=== PATIENT | male | born 1940 | race Caucasian/White ===

== ENCOUNTER 2018-06-14 21:38 | Emergency (ER) | payer OTHER, MEDICARE ==
[~2018-06-14] VITALS: Ht 185.4 cm; Wt 85.3 kg
[2018-06-14 21:46] VITALS: BP 158/77
--- NOTE | 2018-06-14 23:52 | ED GENERAL ADULT ---
History of Present Illness General Chief Complaint: Sore Throat, Dental Pain Stated Complaint: SORE THROAT Source: patient Exam Limitations: no limitations Vital Signs & Intake/Output Vital Signs & Intake/Output Vital Signs Date Time Temp Pulse Resp B/P B/P Pulse O2 O2 Flow FiO2 Mean Ox Delivery Rate 06/14 2146 99.6 64 20 158/77 97 Room Air ED Intake and Output 06/15 0000 06/14 1200 Intake Total Output Total Balance Patient 188 lb Weight Weight Reported by Patient Measurement Method Allergies Coded Allergies: NO KNOWN ALLERGIES (07/07/11) Reconcile Medications Codeine Phosphate/Guaifenesi (Guaifen-Codeine 100-10 MG/5 Ml) 10 MG-100 MG/5 ML LIQUID 1 TSP PO QPMP PRN COUGH Doxycycline Hyclate (Vibramycin) 100 MG CAPSULE 1 CAP PO BID BRONCHITIS Triage Note: REPORTS SORE THROAT SINCE LAST SATURDAY. DENIED FEVER. TEMP AT TRIAGE 99.6 Triage Nurses Notes Reviewed? yes Onset: Abrupt Duration: day(s): Timing: recent history HPI: 06/15/18 11:51 PM 78-year-old man presents with cough and burning sore throat. No fever. No shortness of breath. No chest pain. He is coughing up yellow sputum. He a past medical history of [id number] diabetes. He has trial mucinex DM without any significant relief. He denies any associated fever or chills. Past History Travel History Traveled to [place] past 21 day No Medical History Any Pertinent Medical History? see below for history Neurological: NONE EENT: NONE Cardiovascular: hypertension Respiratory: NONE Gastrointestinal: NONE Hepatic: NONE Renal: NONE Musculoskeletal: NONE Psychiatric: NONE Endocrine: DM Blood Disorders: NONE Cancer(s): NONE TILE ROOFER/Reproductive: NONE Surgical History Surgical History: none Psychosocial History What is your primary language Divehi Tobacco Use: Never used Family History Hx Contributory? No Review of Systems Review of Systems Constitutional: Denies: chills, fever, weakness. EENTM: Reports: throat pain. Respiratory: Reports: cough. Cardiovascular: Reports: no symptoms. GI: Reports: no symptoms. Genitourinary: Reports: no symptoms. Musculoskeletal: Reports: no symptoms. Skin: Reports: no symptoms. Neurological/Psychological: Reports: no symptoms. Hematologic/Endocrine: Reports: no symptoms. Immunologic/Allergic: Reports: no symptoms. Physical Exam Physical Exam General Appearance: well developed/nourished, no apparent distress, alert, awake , comfortable Head: atraumatic, normal appearance Eyes: Bilateral: normal appearance, PERRL, EOMI. Ears, Nose, Throat: Erythematous oropharynx without any visulized abscess Neck: normal inspection, supple, full range of motion Respiratory: normal breath sounds, no respiratory distress, quiet respiration Cardiovascular: regular rate/rhythm Back: normal range of motion Neurologic/Psych: no motor/sensory deficits, awake, alert, oriented x 3 Skin: intact, normal color, warm/dry Core Measures ACS in differential dx? No CVA/TIA Diagnosis: No Sepsis Present: No Sepsis Focused Exam Completed? No Progress Differential Diagnoses I considered the following diagnoses in my evaluation of the patient: acute bronchitis, dyspepsia, gerd, streptococcus pharyngititis, pneumonia Plan of Care: Current Medications Sig/Stephan Start time Last Medication Dose Stop Time Status Admin Doxycycline Hyclate 100 MG ONCE ONE 06/14 2345 UNVr (Vibramycin) 06/14 2346 Initial ED EKG: none Departure Departure Disposition: HOME OR SELF CARE Condition: Stable Clinical Impression Primary Impression: Acute bronchitis Referrals: Vamshi ZULUAGA,Bob Sy (PCP/Family) Departure Forms: Customer Survey General Discharge Information Prescriptions: Current Visit Scripts Codeine Phosphate/Guaifenesi (Guaifen-Codeine 100-10 MG/5 Ml) 1 TSP PO QPMP PRN COUGH #4 OZ Doxycycline Hyclate (Vibramycin) 1 CAP PO BID #20 CAP Comments Take your antibiotic as directed. Use the cough syrup as needed for your cough. Follow up with your primary care provider after discharge. Return to the ED should you develop fever, chills, or get worse. The patient's vital signs are within normal limits. No hypoxia no shortness of breath no chest pain. Signs and symptoms are consistent with bronchitis. Critical Care Note Critical Care Note Critical Care Time: non-applicable
[2018-06-14] MEDS ORDERED: VIBRAMYCIN100 MG PO (23:58)
[2018-06-14] MEDS ORDERED: GUAIFEN-CODEIN118 M1 PO (23:58)
[2018-06-15] MEDS ORDERED: VIBRAMYCIN100 MG PO (00:16)
[2018-06-15] MEDS ORDERED: GUAIFEN-CODEIN118 M1 PO (00:16)
== END 2018-06-15 00:13 ==
LOC: ERH 21:38
DX: J20.9 Acute bronchitis, unspecified (principal)